=== PATIENT | male | born 1960 ===

== ENCOUNTER 2019-12-02 03:27 | Inpatient (IN) | payer OTHER ==
[~2019-12-02] VITALS: Ht 165.1 cm; Wt 75.9 kg
[2019-12-02] MEDS ORDERED: LIDOCAINE-MPF 1%, 2ML ONE (03:39)
[2019-12-02] MEDS ORDERED: LIDOCAINE-MPF 1%, 2ML INFIL ONE (04:00)
[2019-12-02 05:58] VITALS: BP 129/76
[2019-12-02] MEDS ORDERED: ONDANSETRON 2MG/ML, 2ML IVPush PRN (06:30)
[2019-12-02] MEDS ORDERED: morphine SULFATE 10 MG/ML, 1ML IVPush PRN (06:30)
[2019-12-02] MEDS ORDERED: THIAMINE 200 MG in SODIUM CHLORIDE 0.9% 50 ML IV ONE (06:30)
[2019-12-02] MEDS ORDERED: LORazepam 2 MG/ML, 1ML IVPush PRN (06:30)
[2019-12-02 06:54] VITALS: BP 124/75
[2019-12-02 08:33] LABS: ALBUMIN 2.1 g/dL (3.4-5.0); ANION GAP 7 mmol/L (5-15); CALCIUM 7.3 mg/dL (8.5-10.1); CHLORIDE 95 mmol/L (98-107)
[2019-12-02 08:46] LABS: % IRON SATURATION 5 % (20-55); ALANINE AMINOTRANSFERASE 27 U/L (12-78); ALKALINE PHOSPHATASE 150 U/L (45-117); BILIRUBIN,TOTAL 0.7 mg/dL (0.2-1.0); CREATININE 0.66 mg/dL (0.7-1.3); IRON LEVEL 9 mcg/dL (65-175); TOTAL IRON BINDING CAPACITY 175 mcg/dL (250-450); TRANSFERRIN 148 mg/dL (200-360)
[2019-12-02] MEDS: PIPERACILLIN/TAZO/PMX 3.375GM 50 ML IV SCH ×3 (08:56→20:51)
[2019-12-02 10:36] LABS: AMPHETAMINE SCREEN, URINE Negative (Negative); BARBITURATE SCREEN, URINE Negative (Negative); BENZODIAZEPINE SCREEN, URINE Negative (Negative); CANNABINOID SCREEN, URINE Negative (Negative); COCAINE SCREEN, URINE Negative (Negative); METHADONE SCREEN, URINE Negative (Negative); OPIATE SCREEN, URINE Negative (Negative)
[2019-12-02 10:45] LABS: MICROSCOPIC INDICATED
[2019-12-02 10:51] LABS: CULTURE INDICATED? NO
[2019-12-02 12:33] VITALS: BP 110/65
[2019-12-02] MEDS ORDERED: LIDOCAINE 1%, 10ML ONE (13:16)
[2019-12-02] MEDS: PANTOPRAZOLE 40 MG IV IVPush SCH (16:33)
[2019-12-02 19:30] VITALS: BP 100/58
[2019-12-02 20:16] LABS: OCCULT BLOOD NEGATIVE (NEGATIVE)
[2019-12-03 01:45] VITALS: BP 107/63
[2019-12-03] MEDS: PIPERACILLIN/TAZO/PMX 3.375GM 50 ML IV SCH ×4 (02:16→21:42)
[2019-12-03 06:43] VITALS: BP 102/56
[2019-12-03 06:46] LABS: INTERNATIONAL NORMALIZED RATIO 1.44 (0.93-1.1); PROTHROMBIN TIME 15.3 Seconds (9.6-11.5)
[2019-12-03 06:51] LABS: CHLORIDE 97 mmol/L (98-107); MEAN CORPUSCULAR HGB CONC 32.9 g/dL (33.2-36.2); MEAN CORPUSCULAR VOLUME 79.1 fL (81-97); PLATELET COUNT 424 x10^3/uL (130-400); RED BLOOD COUNT 2.93 x10^6/uL (4.38-5.82)
[2019-12-03 07:02] LABS: ALANINE AMINOTRANSFERASE 24 U/L (12-78); ALBUMIN 1.7 g/dL (3.4-5.0); ALKALINE PHOSPHATASE 152 U/L (45-117); ANION GAP 8 mmol/L (5-15); BILIRUBIN,TOTAL 0.7 mg/dL (0.2-1.0); CALCIUM 7.1 mg/dL (8.5-10.1); CREATININE 0.58 mg/dL (0.7-1.3); TOTAL PROTEIN 5.2 g/dL (6.4-8.2)
[2019-12-03 07:44] LABS: BASOPHILS # (AUTO) 0.01 x10^3/uL (0-0.1); BASOPHILS % (AUTO) 0 % (0-1); EOSINOPHILS # (AUTO) 0.14 x10^3/uL (0-0.4); EOSINOPHILS % (AUTO) 1 % (1-7); LYMPHOCYTES # (AUTO) 1.25 x10^3/uL (1-3.4); LYMPHOCYTES % (AUTO) 6 % (22-44); MD SCAN; MONOCYTES # (AUTO) 1.23 x10^3/uL (0.2-0.8); MONOCYTES % (AUTO) 6 % (2-9); NEUTROPHILS # (AUTO) 17.29 x10^3/uL (1.8-6.8); NEUTROPHILS % (AUTO) 87 % (42-75)
[2019-12-03] MEDS: PANTOPRAZOLE 40 MG IV IVPush SCH ×2 (08:12→17:39)
[2019-12-03 12:36] VITALS: BP 106/61
[2019-12-03] MEDS: SPIRONOLACTONE 100 MG TABLET PO SCH (12:53)
[2019-12-03] MEDS ORDERED: POTASSIUM CHLORIDE 20 MEQ in SODIUM CHLORIDE 0.9% 250 ML IV ONE (13:00)
[2019-12-03] MEDS ORDERED: CALCIUM GLUCONATE 4.6 MEQ in SODIUM CHLORIDE 0.9% 100 ML IV ONE (13:00)
[2019-12-03 20:09] VITALS: BP 119/68
[2019-12-04 02:00] VITALS: BP 111/63
[2019-12-04] MEDS: PIPERACILLIN/TAZO/PMX 3.375GM 50 ML IV SCH ×4 (03:10→22:56)
[2019-12-04 06:48] LABS: MEAN CORPUSCULAR HEMOGLOBIN 26.3 pg (27.5-34.5); MEAN CORPUSCULAR VOLUME 79.7 fL (81-97); MEAN PLATELET VOLUME 6.9 fL (7.4-10.4); PLATELET COUNT 460 x10^3/uL (130-400); RED BLOOD COUNT 3.04 x10^6/uL (4.38-5.82); RED CELL DISTRIBUTION WIDTH 16.7 % (9.4-14.8)
[2019-12-04 07:00] LABS: ALBUMIN 1.8 g/dL (3.4-5.0); ANION GAP 9 mmol/L (5-15); CALCIUM 7.1 mg/dL (8.5-10.1); CHLORIDE 100 mmol/L (98-107)
[2019-12-04 07:42] LABS: BASOPHILS % (AUTO) 0 % (0-1); EOSINOPHILS # (AUTO) 0.17 x10^3/uL (0-0.4); EOSINOPHILS % (AUTO) 1 % (1-7); LYMPHOCYTES # (AUTO) 0.98 x10^3/uL (1-3.4); LYMPHOCYTES % (AUTO) 5 % (22-44); MD SCAN; MONOCYTES # (AUTO) 1.01 x10^3/uL (0.2-0.8); MONOCYTES % (AUTO) 5 % (2-9); NEUTROPHILS # (AUTO) 17.38 x10^3/uL (1.8-6.8); NEUTROPHILS % (AUTO) 89 % (42-75)
[2019-12-04] MEDS ORDERED: POTASSIUM CHLORIDE 20 MEQ in SODIUM CHLORIDE 0.9% 250 ML IV ONE (08:30)
[2019-12-04] MEDS ORDERED: CALCIUM GLUCONATE 4.6 MEQ in SODIUM CHLORIDE 0.9% 100 ML IV ONE (08:30)
[2019-12-04] MEDS ORDERED: POTASSIUM PHOSPHATE 44 MEQ in SODIUM CHLORIDE 0.9% 500 ML IV ONE (08:30)
[2019-12-04 08:39] VITALS: BP 149/95
[2019-12-04 08:56] VITALS: BP 108/92
[2019-12-04] MEDS: SPIRONOLACTONE 100 MG TABLET PO SCH (09:16)
[2019-12-04] MEDS: PANTOPRAZOLE 40 MG IV IVPush SCH ×2 (09:16→16:38)
[2019-12-04 14:37] VITALS: BP 104/62
[2019-12-04 20:29] VITALS: BP 113/63
[2019-12-05 01:12] VITALS: BP 100/63
[2019-12-05] MEDS: PIPERACILLIN/TAZO/PMX 3.375GM 50 ML IV SCH ×2 (04:34→10:54)
[2019-12-05 06:30] LABS: MEAN CORPUSCULAR HEMOGLOBIN 26.6 pg (27.5-34.5); MEAN CORPUSCULAR HGB CONC 33.5 g/dL (33.2-36.2); MEAN CORPUSCULAR VOLUME 79.5 fL (81-97); MEAN PLATELET VOLUME 6.5 fL (7.4-10.4); PLATELET COUNT 504 x10^3/uL (130-400); RED BLOOD COUNT 3.03 x10^6/uL (4.38-5.82); RED CELL DISTRIBUTION WIDTH 15.9 % (9.4-14.8)
[2019-12-05 06:38] LABS: ALBUMIN 1.7 g/dL (3.4-5.0); ANION GAP 7 mmol/L (5-15); CALCIUM 7.5 mg/dL (8.5-10.1); CHLORIDE 103 mmol/L (98-107); CREATININE 0.57 mg/dL (0.7-1.3)
[2019-12-05 06:47] LABS: BASOPHILS # (AUTO) 0.03 x10^3/uL (0-0.1); BASOPHILS % (AUTO) 0 % (0-1); EOSINOPHILS # (AUTO) 0.19 x10^3/uL (0-0.4); EOSINOPHILS % (AUTO) 1 % (1-7); LYMPHOCYTES # (AUTO) 1.25 x10^3/uL (1-3.4); LYMPHOCYTES % (AUTO) 7 % (22-44); MD SCAN; MONOCYTES # (AUTO) 1.28 x10^3/uL (0.2-0.8); MONOCYTES % (AUTO) 7 % (2-9); NEUTROPHILS # (AUTO) 15.77 x10^3/uL (1.8-6.8); NEUTROPHILS % (AUTO) 85 % (42-75)
[2019-12-05 07:57] VITALS: BP 100/63
[2019-12-05] MEDS: SPIRONOLACTONE 100 MG TABLET PO SCH (09:12)
[2019-12-05] MEDS: PANTOPRAZOLE 40 MG IV IVPush SCH (09:12)
[2019-12-05] MEDS ORDERED: SPIR100T PO (13:08)
[2019-12-05] MEDS ORDERED: CIPR250T27 PO (13:24)
[2019-12-05] MEDS ORDERED: METR500T PO (13:24)
[2019-12-05] MEDS ORDERED: SULF1TAB24 PO (13:28)
== END 2019-12-05 13:41 | disposition home or self-care (01) | DRG 871 ==
LOC: ED 04:18 → EDIP 04:19 → 4EST 05:47
PROVIDERS: ADMIT Family Medicine; ATTEND Family Medicine
PROC: 0W9G3ZZ Drainage of Peritoneal Cavity, Percutaneous Approach (ICD-10-PCS; principal; 2019-12-02)
DX: A41.9 Sepsis, unspecified organism (principal); E43 Unspecified severe protein-calorie malnutrition; D68.9 Coagulation defect, unspecified; E87.1 Hypo-osmolality and hyponatremia; R18.8 Other ascites; E87.0 Hyperosmolality and hypernatremia; Z68.27 Body mass index [BMI] 27.0-27.9, adult; D64.9 Anemia, unspecified; E83.51 Hypocalcemia; E87.6 Hypokalemia; E88.09 Other disorders of plasma-protein metabolism, not elsewhere classified; F10.10 Alcohol abuse, uncomplicated; K74.60 Unspecified cirrhosis of liver
CPT/HCPCS: 36415; 82042; 89051; 99285; J3490; 49083; 71046; 76700; 80053; 80069; 80074; 80307; 81001; 82140; 82272; 82330; 82728; 83540; 83550; 83615; 83735; 84100; 84443; 84466; 85014; 85018; 85025; 85610; 87040; 87070; 87205; 93005; G0378; J0610; J2543; J3411; J3480; C9113; J7040; J7050